=== PATIENT | female | born 1970 | race African-American/Black ===

== ENCOUNTER 2022-10-05 23:13 | Emergency (ER) | payer MEDICARE, MEDICAID ==
[~2022-10-05] VITALS: Ht 170.2 cm; Wt 92.0 kg
[~2022-10-05 23:13] MED LIST: CEPH500C2 MT
[2022-10-05 23:24] VITALS: O2SAT 98
[2022-10-06 00:40] LABS: BASOPHILS % 1.3 % (0.0-2.0); EOSINOPHILS % 0.8 % (0.0-5.0); HEMATOCRIT. 40.9 % (36.0-48.0); HEMOGLOBIN. 13.1 g/dL (12.0-16.0); LYMPHOCYTES % 23.6 % (20.0-50.0); MEAN CORPUSCULAR HEMOGLOBIN 28.3 pg (28.0-32.0); MEAN CORPUSCULAR VOLUME 88.5 fL (81.0-99.0); MEAN PLATELET VOLUME 8.3 fl (7.4-10.4); MONOCYTES % 4.5 % (2.0-8.0); NEUTROPHILS % 69.8 % (40.0-76.0); PLATELET 457 x1000/uL (130-400); RED BLOOD CELL COUNT 4.62 mill/uL (4.2-5.4); RED CELL DISTRIBUTION WIDTH 13.5 % (11.6-14.6); WHITE BLOOD COUNT 6.9 x1000/uL (4.5-11.0)
[2022-10-06 00:55] LABS: CHLORIDE 104 mEq/L (98-107); INDEX HEMOLYSI 1 (1-3); INDEX ICTERIC 1 (1-4); INDEX LIPEMIC 1 (1-3); POTASSIUM 3.9 mEq/L (3.5-5.1); SODIUM 136 mEq/L (136-145)
[2022-10-06 01:05] LABS: ALANINE AMINOTRANSFERASE 41 IU/L (13-61); ALBUMIN 3.6 g/dL (3.4-5.0); ASPARTATE AMINOTRANSFERASE 24 IU/L (15-37); BILIRUBIN TOTAL 0.4 mg/dL (0.1-1.0); CALCIUM 9.5 mg/dL (8.5-10.1); CARBON DIOXIDE 26 mEq/L (21-32); GLUCOSE 139 mg/dL (70-105); PROTEIN TOTAL 8.4 g/dL (6.0-8.3); TROPONIN I HIGH SENSITIVITY 4 ng/L (<54); UREA NITROGEN BLOOD 17 mg/dL (7-21)
[2022-10-06 01:36] LABS: INR 0.9; PARTIAL THROMBOPLASTIN TIME 26.8 sec (23.4-31.0); PROTHROMBIN TIME 10.1 sec (9.6-11.0)
[2022-10-06 06:49] LABS: TROPONIN I HIGH SENSITIVITY 5 ng/L (<54)
[2022-10-06] MEDS ORDERED: ONDANSETRON 4MG ODT PO STA (08:19)
[2022-10-06] MEDS ORDERED: ACETAMINOPHEN 325MG TABLET PO STA (08:19)
[2022-10-06 08:20] VITALS: BP 120/85; PULSE 92; RESP 16; TEMP 98.6
[2022-10-06] MEDS ORDERED: ONDA4TAB50 MT (08:26)
[2022-10-06] MEDS ORDERED: MECL-159 MT (08:26)
== END 2022-10-06 08:40 | disposition home or self-care (01) ==
LOC: ER 23:13
DX: R07.89 Other chest pain (principal); E11.9 Type 2 diabetes mellitus without complications; E03.9 Hypothyroidism, unspecified
CPT/HCPCS: 99291; 80053; 85025; 85610; 85730; 84484 ×2; 36415 ×2; 71045; 93005; Q0162

== ENCOUNTER 2023-04-02 18:47 | Emergency (ER) | payer MEDICARE, MEDICAID ==
[~2023-04-02] VITALS: Ht 170.2 cm; Wt 94.3 kg
[~2023-04-02 18:47] MED LIST changes: +MECL-299 MT; +ONDA4TAB50 MT
[2023-04-02 18:55] VITALS: TEMP 98.1; O2SAT 98
[2023-04-02 19:47] LABS: BASOPHILS % 0.7 % (0.0-2.0); EOSINOPHILS % 0.9 % (0.0-5.0); HEMATOCRIT. 38.8 % (36.0-48.0); LYMPHOCYTES % 34.9 % (20.0-50.0); MEAN CORPUSCULAR HEMOGLOBIN 29.7 pg (28.0-32.0); MEAN CORPUSCULAR HGB CONC 33.6 g/dL (31.0-37.0); MEAN CORPUSCULAR VOLUME 88.6 fL (81.0-99.0); MEAN PLATELET VOLUME 7.5 fl (7.4-10.4); MONOCYTES % 4.7 % (2.0-8.0); NEUTROPHILS % 58.8 % (40.0-76.0); PLATELET 402 x1000/uL (130-400); RED BLOOD CELL COUNT 4.38 mill/uL (4.2-5.4); RED CELL DISTRIBUTION WIDTH 13.9 % (11.6-14.6); WHITE BLOOD COUNT 6.3 x1000/uL (4.5-11.0)
[2023-04-02 20:01] LABS: ALANINE AMINOTRANSFERASE 35 IU/L (10-49); ALBUMIN 4.3 g/dL (3.2-4.8); ASPARTATE AMINOTRANSFERASE 34 IU/L (<34); BILIRUBIN TOTAL 0.6 mg/dL (0.1-1.0); CARBON DIOXIDE 27 mEq/L (21-32); CHLORIDE 103 mEq/L (98-107); CREATININE 0.9 mg/dL (0.6-1.0); GLUCOSE 107 mg/dL (70-105); POTASSIUM 4.2 mEq/L (3.5-5.1); SODIUM 135 mEq/L (136-145); UREA NITROGEN BLOOD 9 mg/dL (9-23)
[2023-04-02 20:02] LABS: TROPONIN I HIGH SENSITIVITY < 4 ng/L (3.0-34)
[2023-04-02 20:14] LABS: HCG SCREEN NEGATIVE
[2023-04-02 22:03] LABS: TROPONIN I HIGH SENSITIVITY < 4 ng/L (3.0-34)
[2023-04-02 22:53] VITALS: BP 108/70; PULSE 90; RESP 18
== END 2023-04-02 22:55 | disposition home or self-care (01) ==
LOC: ER 18:47
DX: R06.02 Shortness of breath (principal); E11.9 Type 2 diabetes mellitus without complications; E03.9 Hypothyroidism, unspecified
CPT/HCPCS: 36415; 71045; 80053; 83880; 84484; 84703; 85025; 85379; 93005; 99285